=== PATIENT | female | born 1945 | race Caucasian/White ===

== ENCOUNTER → 2017-08-25 09:56 | Outpatient (CLI) | payer OTHER, SELFPAY ==
--- NOTE | 2017-08-25 | DI.MRI.S_ITS ---
PROCEDURE: MR KNEE RT WO CON INDICATIONS: Right knee osteoarthritis TECHNIQUE: Noncontrast sagittal PD fast spin echo and T2 fast spin echo with fat saturation, sagittal 3-D FLASH with fat saturation; coronal T1 spin echo and PD fast spin echo with fat saturation, and axial PD fast spin echo with fat saturation through the knee. COMPARISON: None. FINDINGS: Image quality: Excellent. Menisci: Intrasubstance signal change within the body and posterior horn of the medial meniscus extends to the inferior articular surface on image 22 series 6 in keeping with nondisplaced undersurface tear. The lateral meniscus demonstrates marked truncation of the free margin and intrasubstance signal change extending to the superior and inferior articular surfaces in keeping with tear involving the body Cruciate ligaments: The anterior and posterior cruciate ligaments appear intact. There is mild striated T2 hyperintense appearance of the anterior cruciate ligament raising the possibility of low-grade age indeterminate sprain versus mucoid degeneration. Medial structures: The medial collateral ligament appears intact. There is questionable low signal thickening of the proximal segment raising possibility of chronic mild sprain The posterior oblique ligament, semimembranosus tendon insertions, oblique popliteal ligament, and meniscocapsular junction appear intact. Visualized portions of the pes anserinus tendons appear normal. No abnormal bursal fluid. Lateral structures: The lateral collateral ligament, long and short heads of the biceps femoris tendon appear intact. The popliteus tendon appears normal; the popliteofibular ligament appears intact. The posterosuperior and anteroinferior popliteomeniscal fascicles appear intact. The arcuate and fabellofibular ligaments appear intact, on either side of the lateral inferior geniculate artery. Iliotibial band appears normal. Anterior structures: There is thickening and intrasubstance T2 hyperintensity involving the distal quadriceps tendon and keeping with partial rupture, with adjacent soft tissue edema. Patellar tendon appears intact. Patellar alignment is normal. No femoral trochlear dysplasia or ventral trochlear prominence. No edema in the infrapatellar fat pad. Fluid is present within the deep infrapatellar bursa Bones and cartilage: No bone marrow contusions or fractures. Within the medial compartment, there is partial-thickness loss of the central weightbearing femoral and tibial articular cartilage. Within the lateral compartment, diffuse surface fraying of the femoral and tibial articular cartilage without focal defect. Within the patellofemoral compartment, there is full-thickness loss of the cartilage overlying the medial and lateral patellar facet as well as the femoral trochlea. Joint space: There is physiologic knee joint fluid. No Chavez's cyst. Presumed ganglion cyst seen at the origin of the medial and lateral gastrocnemius muscles. IMPRESSION: Distal quadriceps insertional tendinopathy/partial tear. Adjacent soft tissue edema. Nondisplaced undersurface tear involving the body and posterior horn of the medial meniscus. Poorly defined air of the lateral meniscal body, versus postsurgical changes. Please correlate with surgical history. Chronic mild sprain of the medial collateral ligament. Severe knee joint degeneration most advanced in the patellofemoral compartment. Possible low-grade age indeterminate sprain of the anterior cruciate ligament versus early mucoid degeneration. Please correlate to clinical exam findings. Dictated by: Devonte Ashby M.D. on 08/25/2017 at 13:00 Approved by: Devonte Ashby M.D. on 08/25/2017 at 13:38
== END ==
PROVIDERS: Family Provider Family Medicine Geriatric Medicine; PCP Family Medicine Geriatric Medicine; Visit Provider Orthopaedic Surgery
DX: M17.11 Unilateral primary osteoarthritis, right knee (principal); S83.241A Other tear of medial meniscus, current injury, right knee, initial encounter; S76.111A Strain of right quadriceps muscle, fascia and tendon, initial encounter
CPT/HCPCS: 73721

== ENCOUNTER 2018-07-07 06:06 | Inpatient (IN) | payer OTHER, MEDICARE, SELFPAY ==
[2018-06-23 08:46] VITALS: BMI 22.9
[2018-07-07] VITALS (28 sets, daily range): BP systolic 87–150; BP diastolic 45–79; PULSE 55–92; RESP 10–22; TEMP 35.6–36.8; O2SAT 94–100; BMI 22.1
--- NOTE | 2018-07-07 | DI.RAD.S_ITS ---
PROCEDURE: XR PELVIS 1-2V INDICATIONS: ANTERIOR HIP REPLACEMENT TECHNIQUE: Intra-operative view of the pelvis and hip acquired. COMPARISON: [facility], [place], XR HIP W PEL IF DONE RT 2V, 07/07/2018, 11:16. FINDINGS: Intraoperative images demonstrate right hip arthroplasty. Hardware is intact with anatomic alignment. IMPRESSION: Right hip arthroplasty. Dictated by: Alfreda Evans M.D. on 07/07/2018 at 13:17 Approved by: Alfreda Evans M.D. on 07/07/2018 at 13:18
--- NOTE | 2018-07-07 | DI.RAD.S_ITS ---
PROCEDURE: XR HIP W PEL IF DONE RT 2V INDICATIONS: POST OPERATIVE RIGHT HIP TECHNIQUE: AP pelvis and lateral view of the right hip acquired. COMPARISON: [facility], [place], XR HIP W PEL IF DONE RT 2V, 07/07/2018, 11:16. FINDINGS: Bones: Patient is status post right hip arthroplasty, with hardware components in expected positions. The hip joint appears congruent. The visualized bony structures appear intact. Soft tissues: Overlying postoperative changes are noted. No suspicious soft tissue densities. IMPRESSION: Right hip prosthesis in anatomic alignment. Dictated by: Eboni Snyder M.D. on 07/07/2018 at 15:51 Approved by: Eboni Snyder M.D. on 07/07/2018 at 15:51
--- NOTE | 2018-07-07 | DI.RAD.S_ITS ---
PROCEDURE: XR HIP W PEL IF DONE RT 2V INDICATIONS: CUP REVISION TECHNIQUE: 5 views of the hip were acquired. COMPARISON: None. FINDINGS: Intraoperative fluoroscopy images demonstrate revision of right hip prosthesis. IMPRESSION: Revision of right hip prosthesis. Dictated by: Eboni Snyder M.D. on 07/07/2018 at 15:28 Approved by: Eboni Snyder M.D. on 07/07/2018 at 15:29
--- NOTE | 2018-07-07 06:37 | DI.RAD.S_ITS ---
PROCEDURE: XR HIP W PEL IF DONE RT 2V INDICATIONS: Postop right total hip arthroplasty TECHNIQUE: AP pelvis and lateral view of the right hip acquired. COMPARISON: [facility], CR, XR PELVIS 1-2V, 07/07/2018, 8:12. [facility], CR, XR PELVIS WITH LATERAL HIP RIGHT, 04/26/2018, 14:27. FINDINGS: Bones: Patient is status post right hip arthroplasty, with hardware components in expected positions. The hip joint appears congruent. The visualized bony structures appear intact. Soft tissues: Overlying postoperative changes are noted. No suspicious soft tissue densities. IMPRESSION: Right hip arthroplasty as above. Dictated by: Alfreda Evans M.D. on 07/07/2018 at 13:19 Approved by: Alfreda Evans M.D. on 07/07/2018 at 13:19
[2018-07-07] MEDS: ACETAMINOPHEN 325 MG TABLET 975 MG PO ×2 (06:53→20:03)
[2018-07-07] MEDS: PREGABALIN 75 MG CAPSULE PO (06:53)
[2018-07-07] MEDS: VANCOMYCIN 1,000 MG/200 ML FROZ.PIGGY 200 MG IV (06:59)
[2018-07-07] MEDS: LACTATED RINGERS 1,000 ML 42 ML IV ×3 (07:00→11:35)
--- NOTE | 2018-07-07 07:25 | SUR.OPER ---
Supine, head on pillow, torso on pink pad positioner. Iliac crest at flex of foot end of table. Gel roll under operative hip. Both arms secured on arm boards <90 degrees abduction.
--- NOTE | 2018-07-07 07:38 | PM.PREOP ---
Pre-operative Note Interval Note History & Physical reviewed/Exam performed by Physician: Yes Changes to H&P: No
--- NOTE | 2018-07-07 07:40 | P.OP_ITS ---
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 Patient was carefully positioned in the supine position. Time-out was performed and antibiotics were given. Anesthesia was induced. She was positioned in the on the table in order to allow hyperextension of the hip. Bilateral lower extremities were prepped and draped in a standard sterile fashion. An anterior right hip incision was made 1 fingerbreadth lateral to the anterior superior iliac spine and extended distally towards the greater trochanter. Dissection was carried out through skin and subcutaneous tissues. The skin and subcutaneous tissues were carefully injected with Lidocaine with epi. Superficial hemostasis was achieved. The fascia over the tensor fascia ruby was defined and incised with a knife. Two Allis clamps were used to grasp the fascia. Tensor fascia ruby was retracted laterally. A gelpi retractor was placed. Dissection was carried out down along the neck. The circumflex vessels were carefully identified and cauterized with the Aqua Mantis. There was good visualization of the femoral neck. A Cobra was placed superior to the neck and the gluteus fibers were carefully stripped from that superior aspect of the capsule. A 2nd retractor was placed along the inferior aspect of the neck. The rectus insertion along the capsule was partially released. A 3rd retractor that was then gently placed over the rim of the acetabulum under the rectus. Capsule was carefully incised and released from the intertrochanteric line circumferentially superior to the mid sagittal line and inferiorly to the mid sagittal line until the lesser trochanter was palpable. A tag stitch was placed both in the superior and inferior limb of the capsular insertion. Along the acetabulum capsule was also released up to the mid sagittal 12:00 position. A portion of the labrum was resected. A saw was used to perform an osteotomy at the level of the intertrochanteric line and the junction of the superior femoral neck leaving approximately 1 finger breath of residual inferior neck above the lesser trochanter. A 2nd cut was made along the femoral neck at the base of the head and a napkin ring of neck was removed. Corkscrew was placed in the femoral head and the head was removed without difficulty. Retractors were then repositioned around the acetabulum. Residual labrum was resected and additional osteophytes were removed. A reamer that was 4 mm below the templated size was placed by hand in the acetabulum and it was reamed to centralize the acetabulum. It was then reamed up to 2 under the templated size and fluoroscopy was brought in to confirm the position of the reaming and depth of reaming. I reamed 1 under the anticipated size and touched the rim with line to line reaming. A trial cup was placed and noted that it was appropriately sized and fluoroscopy confirmed position and depth. The component was open and inserted without difficulty fluoroscopic imaging was used to confirm that the cup had been adequately seated and was well positioned. Neutral poly trial liner was placed. The cup was tested and noted to be stable. as she had soft bone I specifically checked the stability of the cup several times. Attention was then directed to the femur. The femur was gently hyperextended additional capsular release was performed as needed in order to allow adequate visualization of the proximal femur with elevation of the femur. Patient was placed in a hyperextended slightly abducted position with maximum external rotation. Box osteotome was used to check for any residual neck as well as sclerotic bone along the trochanter. [place] pepper was placed in the femur. Additional broaching was performed. Canal finder was used to determine the alignment of the canal and position. Size 1 broach was placed. The canal was then appropriately broached up to the templated size as long as there was adequate stability of the broach and serial advancement of the broach without excessive impingement. Specific attention was directed at avoiding varus attempting to direct the distal aspect of the broach more anteriorly and avoiding excessive anteversion. Trial reduction showed acceptable range of motion, good stability, no posterior impingement, scientology of leg length and appropriate lateral shuck. I also hyperflexed the hip and checked that there was no impingement anteriorly and there was good stability with flexion, abduction and internal rotation. Marcaine and Exparel were injected.. The stem was placed without difficulty. Repeat trial reduction and x-ray showed acceptable overall position, length, and no evidence of the femoral fracture. Final head was placed. Wound was meticulously irrigated with normal saline. The hip was reduced and additional Exparel and Marcaine were injected. The capsule was closed with interrupted nonabsorbable sutures. The fascia of the tensor was closed with interrupted and running Vicryl. No drain was placed. Any tensor fascia ruby muscle that appeared to be contused or injured which was a minimal amount was carefully resected. Capsule around the tensor was injected with Exparel and Marcaine. The skin was closed with barbed stitches for the subcutaneous tissue and skin. We also used surgical glue. The wound was dressed sterilely. Brief Betadine soak was also used and was meticulously irrigated with normal saline. Patient was transferred to recovery room in satisfactory condition. Immediate postoperative films showed that the cup had shifted position it was not felt to be acceptable. The situation was discussed in detail with the patient and I directly contacted the who had gone to an eye appointment and told him that we are going to take her back to reposition the cup. He gave verbal consent for his who also gave verbal consent for additional surgical intervention. procedure alternatives risks benefits and complications were discussed in detail. Complications: other (Immediate postoperative recovery x-rays showed that the cup had clearly shifted in comparison to intraoperative positioning) Condition: stable Disposition: Acute Care Plan for aftercare: The patient will be maintained on a standard total hip replacement protocol with weight bearing as tolerated and anterior hip precautions. The patient will receive Aspirin and sequential compression devices for DVT prophylaxis. The patient will be discharged home when safe for the home environment.
[2018-07-07] MEDS: CEFAZOLIN 2 GM/100 ML FROZ.PIGGY IV ×3 (08:00→20:50)
[2018-07-07] MEDS: TRANEXAMIC ACID 1,000 MG VIAL 1000 MG IV ×2 (08:33→10:38)
[2018-07-07] MEDS: BUPIVACAINE LIPOSOME 266 MG/20 ML VIAL INJ (08:33)
[2018-07-07] MEDS: LIDOCAINE 1% W/EPI INJ 20 ML INJ (08:33)
[2018-07-07] MEDS: POVIDONE-IODINE 15 ML, SODIUM CHLORIDE 0.9% 250 ML TOP (08:34)
[2018-07-07] MEDS: BUPIVACAINE 0.25% W/ EPI 30 ML VIAL 60 ML INJ (08:34)
--- NOTE | 2018-07-07 08:35 | SUR.OPER ---
Head on pillow. Supine on [place] table with bilateral feet secured in traction boots. Right arm across chest, secured with sheet; left arm secured on padded armboard. Capillary refill checked intermittently throughout procedure.
[2018-07-07] MEDS: fentaNYL 100 MCG/2 ML INJ 50 MCG IV ×4 (11:16→12:06)
[2018-07-07] MEDS: HYDROMORPHONE 2 MG INJ 0.5 MG IV ×3 (11:24→12:11)
--- NOTE | 2018-07-07 11:46 | SUR.PHASEI ---
BEDSIDE REPORT GIVEN TO MANJIT FERNANDEZ. PT IN STABLE CONDITION, VSS. PT ALERT AND TALKING TO RN AT BEDSIDE. PT REPORTS PAIN IS GETTING BETTER. TRANSFERRED CARE OF PT TO MANJIT FERNANDEZ AT THIS TIME.
--- NOTE | 2018-07-07 11:57 | SUR.PHASEI ---
Pt. states pain is at a 4 on pain scale 0-10. Using moist sponge to moisten mouth, anesthesia approved. VVS.
--- NOTE | 2018-07-07 12:16 | SUR.PHASEI ---
FLOAT NURSE here at bedside to receive report from Ph I RN, now back out to OR per surgeon.
--- NOTE | 2018-07-07 12:59 | SUR.PHASEI ---
addendum to 1206 medication note. Pt. DID NOT receive 50mcg of fentanyl, documented fentanyl by mistake, at 1206, pt. rec'd 0.5 mg hydromorphone and again 0.5 mg hydromorphone at 1211. Fentanyl 50mcg was wasted by this RN and Maritza Lucia RN
--- NOTE | 2018-07-07 13:07 | SUR.OPER ---
Head on pillow. Supine on [place] table with bilateral leg secured in traction. Right arm padded and secured across chest, left arm secured on padded armboard
[2018-07-07] MEDS: BUPIVACAINE 0.25% W/ EPI (PF) 10 ML VIAL INJ (13:44)
--- NOTE | 2018-07-07 15:14 | PM.OP.1 ---
Operative Date/Time/Diagnoses Date of procedure: 07/07/18 Time of procedure: 13:14 Post-op diagnosis: same Procedure & Clinicians Procedure: Right hip revision of acetabular position Same procedure as scheduled: Yes Indications: This is a 73-year-old female with a history of a renal transplant chronic steroid use and chronic cyclosporin use. She underwent her anterior right total hip arthroplasty. intraoperatively her cup position was clinically stable but on postoperative films it was noted that the cup had shifted. She is brought the operating room for revision and placement of an acetabulum with screw fixation. Surgeon: Laquita Leal Forming Yardage Control Operator: Nina Horton Anesthesia Type: General Operative Notes Findings: Extremely soft acetabular bone, components removed without difficulty, larger acetabulum inserted but still required additional screw fixation for stability, very soft acetabulum Closure Type: primary Prosthetic devices, grafts, tissues, transplants, or devices: Leal and Nephew 54 mm cup, 20 mm screw, 15 mm screw, 54 x 36 mm liner, removed but retained femoral prosthesis and head Applied: catheter Estimated Blood Loss (mL): 50 Blood products transfused: none Procedure in detail: The patient was brought to the operating room. Patient was carefully positioned in the supine position. Time-out was performed and antibiotics were given. Anesthesia was induced. She was positioned in the on the table in order to allow hyperextension of the hip. the right lower extremities were prepped and draped in a standard sterile fashion. the sutures were removed from the patient's previous incision and the wound was meticulously irrigated. Two Allis clamps were used to grasp the fascia. Tensor fascia ruby was retracted laterally. A gelpi retractor was placed. The hip was very gently dislocated. Retractors were placed around the proximal femur the head was removed without difficulty. The stem was carefully removed without difficulty by tamping on the punch region of the neck. the femoral component was carefully removed. the acetabulum was noted to be spun and quite loose. It was removed with [place]. Retractors were placed around the acetabulum. the acetabulum was reamed up to a 53 mm cup and fluoroscopy was brought in to confirm the position of the reaming and depth of reaming. I reamed 1 under the anticipated size. A trial cup was placed and noted that it was appropriately sized and fluoroscopy confirmed position and depth. The component was open and inserted without difficulty fluoroscopic imaging was used to confirm that the cup had been adequately seated and was well positioned. It was meticulously impacted but with testing of the acetabulum it was clear that she had soft bone and was still required screw fixation. two screws were carefully placed in the posterior superior safe zone. Neutral poly liner was placed. The cup was tested and noted to be stable. Attention was then directed to the femur. The femur was gently hyperextended. Patient was placed in a hyperextended slightly abducted position with maximum external rotation. the canal was meticulously irrigated with the pulse lavage. the femoral size 8 standard offset stem was inserted without difficulty. Trial reduction showed acceptable range of motion, good stability, no posterior impingement, synagogue of leg length and appropriate lateral shuck. I also hyperflexed the hip and checked that there was no impingement anteriorly and there was good stability with flexion, abduction and internal rotation. Repeat x-ray showed acceptable overall position, length, and no evidence of the femoral fracture. Final head was placed. Wound was meticulously irrigated with normal saline. The hip was reduced and additional Exparel and Marcaine were injected. The capsule was closed with interrupted nonabsorbable sutures. The fascia of the tensor was closed with interrupted and running Vicryl. No drain was placed. Any tensor fascia ruby muscle that appeared to be contused or injured which was a minimal amount was carefully resected. Capsule around the tensor was injected with Exparel and Marcaine. The skin was closed with barbed stitches for the subcutaneous tissue and skin. We also used surgical glue. The wound was dressed sterilely. Brief Betadine soak was also used and was meticulously irrigated with normal saline. Patient was transferred to recovery room in satisfactory condition. Complications: none Condition: stable Plan for aftercare: The patient will be maintained on a standard total hip replacement protocol with weight bearing as tolerated and anterior hip precautions. The patient will receive Aspirin and sequential compression devices for DVT prophylaxis. The patient will be discharged home when safe for the home environment.
--- NOTE | 2018-07-07 15:57 | PC.NURSE ---
Addendum entered by Martine Reyes R.N. 07/07/18 22:26: Up to commode with assistance. Voiding without difficulty. Follows hip precautions well. Returned to bed; pillow between legs and BL calf scd's replaced. Room air 98% per continuous monitor. Ice to right hip. Intact neurovascular status. Encouraged to alert staff if needing/desiring further analgesia. Own I.S. at bedside and use encouraged. Original Note: Addendum entered by Martine Reyes R.N. 07/07/18 20:14: Dr. Leal in to see patient. Pt prefers tylenol only to manage pain, but Dr. Leal states will write for tramadol if needed. Original Note: Addendum entered by Martine Reyes R.N. 07/07/18 18:46: Pt unable to void on bedpan. Has not been seen by P.T. yet. Bladder scanned for 333 cc/s. One person assist to bedside commode and able to void 150 cc's. Original Note: Addendum entered by Martine Reyes R.N. 07/07/18 18:08: Desats to 88% with sleep per float RNLoli. Placed on 2L per nc. Taking diet well. Original Note: Pt to room 211 from PACU wide awake and conversant with pinpoint pupils. Appropriate mentation and conversation. Continuous pulse oximeter in place with 02 sats on room air 97%. Palpable pedal pulse RLE. Pt admits to full sensation to BL LE's. BL calf scd's in place. Pt denies nausea and taking sips water without difficulty. Rates right hip pain 2/10. Declines offer for analgesia at this time. Ice to right hip. Oriented to call light.
[2018-07-07] MEDS: LACTATED RINGERS 1,000 ML 125 ML IV (16:18)
[2018-07-07] MEDS: CYCLOSPORINE 75 MG 75 EACH PO (19:07)
[2018-07-07] MEDS: ASPIRIN EC 81 MG TABLET PO (20:03)
[2018-07-07] MEDS: DOCUSATE 100 MG CAPSULE PO (20:03)
[2018-07-07] MEDS: TRAMADOL 50 MG TABLET PO (23:09)
[2018-07-08] MEDS: LACTATED RINGERS 1,000 ML 125 ML IV (00:17)
[2018-07-08] MEDS: CEFAZOLIN 2 GM/100 ML FROZ.PIGGY IV (05:06)
[2018-07-08 05:12] VITALS: BP 123/66; PULSE 92; RESP 16; TEMP 36.8; O2SAT 99
[2018-07-08 06:21] LABS: Hemoglobin 7.8 g/dL (12.0-16.0)
[2018-07-08 06:27] LABS: Hematocrit 23.4 % (36-46)
[2018-07-08 07:10] VITALS: O2SAT 95
[2018-07-08 07:35] VITALS: BP 109/55; PULSE 73; RESP 16; TEMP 36.7; O2SAT 99
[2018-07-08] MEDS: predniSONE 5 MG TABLET PO (07:59)
[2018-07-08] MEDS: CYCLOSPORINE 75 MG 75 EACH PO (07:59)
[2018-07-08 08:00] VITALS: O2SAT 100
[2018-07-08] MEDS: azaTHIOprine 50 MG TABLET PO (08:00)
[2018-07-08] MEDS: ASPIRIN EC 81 MG TABLET PO (08:00)
[2018-07-08] MEDS: DOCUSATE 100 MG CAPSULE PO (08:00)
[2018-07-08] MEDS: CANDESARTAN 16 MG TABLET 8 MG PO (08:02)
[2018-07-08] MEDS: ACETAMINOPHEN 325 MG TABLET 975 MG PO (08:04)
[2018-07-08] MEDS: TRAMADOL 50 MG TABLET PO (08:19)
[2018-07-08] MEDS: SODIUM CHLORIDE 0.9% FLUSH 10 ML IV (08:20)
--- NOTE | 2018-07-08 08:20 | PM.DS.1 ---
History of Present Illness Date Patient Seen: 07/08/18 Time Patient Seen: 08:20 Chief complaint: Total Hip Arthroplasty/Anterior Narrative: This is a 73-year-old female with a history of a renal transplant chronic steroid use and chronic cyclosporin use. She underwent her anterior right total hip arthroplasty for severe AVN. intraoperatively her cup position was clinically stable but on postoperative films it was noted that the cup had shifted. She is brought the operating room for revision and placement of an acetabulum with screw fixation. Discharge Providers Date of admission: 07/07/18 06:06 Discharge Date: 07/08/18 Primary care physician: Vicky Smith MD Consults: 06/23/18 09:43 Consult to Anesthesiology Routine Comment: Consulting Provider: Anesthesiologist Reason for consultation: PAC Courtesy re: Renal transplant Consult to Pastoral Services Routine Comment: RT JERAMY 07/07/18 07/07/18 06:37 Consult to Anesthesiology Routine Comment: Consulting Provider: Anesthesiologist Reason for consultation: Regional block for post operative pain control 07/07/18 15:49 Consult to Discharge Planning Routine Comment: Consult to Physical Therapy Evaluate & Treat Comment: Physician Instructions: post op JERAMY protocol Consult to Respiratory Therapy Evaluate & Treat Comment: Physician Instructions: Evaluate and treat 07/07/18 16:04 Consult to Pastoral Services Routine Comment: pt requeswt Discharge provider: Nina Horton PA-C Summary Discharge Diagnosis: s/p right anterior approach total hip arthroplasty History of renal transplant Osteoarthritis Hypertension Hyperlipidemia Glomerulonephritis Post operative anemia Hospital Course: Katie was admitted for right total hip arthroplasty anterior approach with Dr. Leal. She consented to procedure. After her 1st surgery it was discovered that the acetabular cup had shifted. She was brought back to the operating room for a revision and 2 screws were placed into acetabular cup. She did have postoperative anemia after surgery at 7.8/23.4 and asymptomatic. She she does have a history of chronic anemia due to her kidney transplant in the s. She has been on chronic prednisone since. She takes iron at home. On postop day 1. Patient was ready to discharge home. She has been ambulating in her room. she was eating and voiding without difficulty or assistance. Status at Discharge Functional status at discharge: uses cane/walker Exam Vital Signs (past 8 hours): - 07/08/18 05:12 07/08/18 07:10 Temperature 98.3 F Pulse Rate 92 H Respiratory Rate 16 Blood Pressure 123/66 Pulse Oximetry 99 95 Oxygen Delivery Method Room Air Oxygen Flow Rate 0 Narrative Exam Narrative: Patient lying in bed in no acute distress. She is alert and oriented x3. Dressing on right hip is CDI. Calves are soft, compressible, nontender bilaterally. Sensation intact light touch throughout bilateral lower extremities. Pulses are symmetrical. Patient's pain was well controlled last night with tramadol. She has been up and ambulating in her room and has been asymptomatic with no dizziness, or hypotension. Objective Labs Result Diagrams: 07/08/18 06:03 Labs: Laboratory Results - last 24 hr 07/08/18 06:03 Hgb 7.8 L Hct 23.4 L Discharge Plan Discharge Plan Patient Disposition: Home Discharge comment: Home after PT Discharge Med Rec/Prescriptions Prescriptions: New acetaminophen 325 mg Tablet 975 mg PO TID Qty: 60 RF: 0 aspirin 81 mg Tablet,Delayed Release (Dr/Ec) 81 mg PO BID Qty: 60 RF: 0 tramadol 50 mg Tablet 50 mg PO QID PRN (Reason: Pain, Moderate (4-6)) Qty: 50 RF: 0 ascorbic acid (vitamin C) [Vitamin C] 500 mg Tablet 500 mg PO BID Qty: 60 RF: 0 ferrous sulfate 325 mg (65 mg iron) Tablet 325 mg PO BIDWM Qty: 60 RF: 0 docusate sodium 100 mg Capsule 100 mg PO BID Qty: 60 RF: 0 Continued prednisone 5 MG tablet 5 mg PO QAM Qty: 0 RF: 0 azathioprine [Imuran] 50 MG tablet 50 mg PO QMWF Qty: 0 RF: 0 cyclosporine [Sandimmune] 25 MG capsule 75 mg PO BID Qty: 0 RF: 0 candesartan 8 MG tablet 8 mg PO QAM Qty: 0 RF: 0 azathioprine [Imuran] 50 mg Tablet 25 mg PO [id number] RF: 0 Follow up/Referrals: Vicky Smith MD [Primary Care Provider] - Laquita Leal MD [Physician] - Provider Discharge Instructions Diet: Diet as Tolerated Activity: Weight bear as tolerated. Anterior hip precautions. Cold/Heat Therapy: Ice packs as needed Skin/Wound/Dressing Care Report to your healthcare provider any signs of infection, such as:: chills, fever and increased pain Dressing: Keep dressing in place until follow up at 2 weeks. Visit Report/Discharge Packet Instructions: DI for Hip Replacement Discharge Data Primary Care Provider: Vicky Smith Attending Provider: Laquita Leal Admit Date/Time: 07/07/18 06:06 Quality VTE Deep Vein Thrombosis/Pulmonary Embolism Present on Admission: No
--- NOTE | 2018-07-08 08:48 | PM.CHAP ---
Staff referral. Delightful visit. Pt. has good support group waiting for her back home in Wednesday. Shared prayer and encouragement.
--- NOTE | 2018-07-08 09:00 | PT.IIE ---
Current Diagnoses Unilateral primary osteoarthritis, right hip (07/07/18) Surgery Performed Operation Date: 07/07/18 07:45 Actual Procedures p Total Hip Arthroplasty/Anterior Approach(Right) - Laquita Leal MD Operation Date: 07/07/18 14:45 Actual Procedures p Total Hip Arthroplasty/Anterior Approach (revision of cup position and prosthesis)(Right) - Laquita Leal MD Surgical History (Last Updated 06/23/18 @ 09:24 by Arianna Sweet RN) Hx of bilateral cataract extraction (Acute) Hx of kidney transplant (Acute ~05/1994) Hx of reduction mammoplasty (Acute ~1997) Hx of tonsillectomy (Acute) S/P left unicompartmental knee replacement (Acute) Medical History (Last Updated 06/23/18 @ 09:24 by Arianna Sweet RN) Easy bruisability (Acute) Elevated WBC count (Acute) Hyperlipidemia (Acute) Hyponatremia (Acute) Osteoarthritis (Acute) SCC (squamous cell carcinoma) (Acute) Shoulder fracture, right (Acute 09/03/17) Systolic murmur (Acute) Physical Therapy Inpatient Evaluation/Re-Eval M1 PT/OT-IP Prior Functional Status Start: 07/07/18 17:03 Freq: NEEDED Status: Active Protocol: Document 07/08/18 09:00 AB (Rec: 07/08/18 12:48 AB [id number]) Medical Review Prior Functional Status Medical History Reviewed Yes Communication able to make needs known Mobility and Gait pt stated that she is modified independent with all mobilities and ambulation without AD indoors but occasionally uses a SPC but uses SPC for outdoor mobility Social History Household Members spouse Living Arrangements House Number of Floors (Floors) Two Floors Number of Stairs To Enter/Railing? 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 PT-IP Current Condition Start: 07/07/18 17:03 Freq: NEEDED Status: Active Protocol: Document 07/08/18 09:00 AB (Rec: 07/08/18 12:48 AB [id number]) Physical Therapy Current Condition Current Condition Evaluation Date 07/08/18 Treatment Diagnosis s/p R JERAMY anterior approach; difficulty in walking Onset Date 07/07/18 Precautions Anterior Hip Precautions No Hip Extension No Hip External Rotation Weight Bearing Status Weight Bearing Status Weight Bear as Tolerated M3 PT-IP Subjective Start: 07/07/18 17:03 Freq: NEEDED Status: Active Protocol: Document 07/08/18 09:00 AB (Rec: 07/08/18 12:48 AB [id number]) Subjective Physical Therapy Visit Type Type Initial Evaluation Visit Start Time 09:00 Visit Stop Time 09:57 Total Visit Minutes 57 Number of LINE PREP COOK Visits 0 Physical Therapy Visit Comments Patient Comments pt agreeable to do PT Therapy Pain Assessment Pain When Pain Assessed At Rest Pain Present Pain Present Pain Reported Location Right Hip Intensity 2 Scale Used Numeric (1 - 10) Pain Management Techniques Apply Cold Re-positioning Timing of Activity with Medications M4 PT-IP Mobility and Gait Start: 07/07/18 17:03 Freq: NEEDED Status: Active Protocol: Document 07/08/18 09:00 AB (Rec: 07/08/18 12:48 AB [id number]) PT-Bed Mobility Assessment Supine to Sit Supine to Sit Standby Assistance Sit to Supine Sit to Supine Standby Assistance Scooting Scooting to Edge of Bed Standby Assistance PT-Transfer Assessment Sit to and From Stand Sit to and from Stand Standby Assistance 1 Person Assistance Use of Upper Extremities Equipment Transfer Assistive Device Gait Belt Front Wheeled Walker 4 Wheeled Walker Orthotic/Prosthetic Devices or Brace: Yes Transfers Transfer Destination Chair Transfer Technique pt ambulated using FWW/4WW Transfer Ability Level of Assist Standby Assistance Gait Assessment Gait Gait Assistance Required: Standby Assistance Contact Guard Assist Distance (Feet) 125 Able to Maintain Weight Bearing Status Yes During Gait Assistive Devices Assistive Device Gait Belt Front Wheeled Walker 4 Wheeled Walker Orthotic/Prosthetic Devices or Brace: No Gait Deviations General Gait Pattern Antalgic Decreased Stride Length Decreased Feet Clearance Factors Limiting Gait Function Factors Limiting Gait Function Decreased Activity Tolerance Decreased Strength Limited Range of Motion Pain Poor Balance Poor Safety Awareness Comments Gait Comments pt ambulated in room using FWW ~ 50 ft SBA and cues for hip precautions. pt has 4WW to use at home. Assessed ambulation using 4WW. educated on use of brakes. pt completed ambulation in the hallway 125 ft SBA to occasional CGA and cues. Stair Climbing Assessment Evaluation Level of Assist On Stairs Contact Guard Assistance Devices Stair Climbing Assistive Devices Straight Cane Right Railing Technique/Endurance Stair Climbing Direction Ascend and Descend Stair Climbing Technique Step to Step Number of Steps Climbed 3 Query Text: Stair Climbing Set # Repetitions (reps) 2 Comments Stair Climbing Comments pt c/o nausea after doing stairs. assisted pt to the room. BP checked: 153/78. pt transferred from w/c to chair using FWW SBA. positioned pt on chair. ice pack provided. call light and table placed within reach. PT-Balance Assessment Sitting Balance and Reactions Static Sitting Balance Ability Good Dynamic Sitting Balance Ability Good Standing Balance and Reactions Static Standing Balance Ability Fair Dynamic Standing Balance Ability Fair Device Used FWW M5 PT-IP Objective Assessments Start: 07/07/18 17:03 Freq: NEEDED Status: Active Protocol: Document 07/08/18 09:00 AB (Rec: 07/08/18 12:48 AB [id number]) Orientation Orientation/Cognition Level of Alertness Alert Orientation Name Age Birthday Date Place Situation Language Function Ability No Deficits Noted Memory Description Short Term Impaired Gross Range of Motion Lower Extremity ROM Assessment Within Functional Limits Strength Lower Extremity Strength Assessment Right Impaired Knee 4-/5 Sensation Assessment Sensation Gross Sensation WNL Muscle Tone Muscle Tone WNL Yes M6 PT-IP Treatment Start: 07/07/18 17:03 Freq: NEEDED Status: Active Protocol: Document 07/08/18 09:00 AB (Rec: 07/08/18 12:48 AB [id number]) Physical Therapy Treatment Education Education Provided Precautions Weight Bearing Status Post-Op Packet Safety M7 PT-IP Assessment and Plan Start: 07/07/18 17:03 Freq: NEEDED Status: Active Protocol: Document 07/08/18 09:00 AB (Rec: 07/08/18 12:48 AB [id number]) PT Summary Assessment and Plan Potential Rehabilitation Potential Good Status of Condition at Evaluation Stable Summary Impairments Pain ROM Strength Balance Coordination Sensation Tone Cognition Bed Mobility Transfers Gait Activity Tolerance Assessment Summary pt requiring SBA to CGA with mobility and plans to go home with spouse to assist her. pt may go home when medically stable. Goals Bed Mobility Goal Independent Transfer Goal Independent Four Wheeled Walker Gait Goal Independent Four Wheel Walker Gait Distance 200 Other Goals up/down 6 steps with R rail ascending and use of SPC Days to Meet Goals 3 Frequency of Treatment Frequency Of Treatment Twice a Day Treatment Plan Physical Therapy Treatment Plan Bed Mobility Training Transfer Training Gait Training Therapeutic Exercise Balance Retraining Post Op Education Discharge Planning Hot or Cold Pack Neuromuscular Re-ed Coordination Retraining Manual Therapy Other Recommendations and Next Treatment ambulation, stair climbing Focus Recommendations To Nursing Amount of Assist Needed 1 Person Assist Discharge Recommendations PT Discharge Recommendations Home with Assistance Outpatient PT
[2018-07-08] MEDS: ASCORBIC ACID 500 MG TABLET PO (10:02)
[2018-07-08] MEDS: FERROUS SULFATE 325 MG TABLET PO (10:02)
--- NOTE | 2018-07-08 10:15 | PC.NURSE ---
Addendum entered by Breanna Sterling R.N. 07/08/18 13:26: At 1200, reviewed discharge summary packet. All questions answered, no further voiced concerns. Pt's present to pick pt up, taking [address] to [facility], has boarding pass. Pt given back 2 bottles of her home medications of Cyclosporine and Azathioprine. COPIER AND PRINTER FIELD TECHNICIAN reported pt left unit via wheelchair with her . Unwitnessed by this content writer. Original Note: Day Shift- Pt A&OX4, able to make needs known using call light. OOB with SBA using walker 2X this shift. Steady gait. Rates 5-6/10 aching and tenderness to right hip incision area. Surrounding puffy edema noted. Scheduled Tylenol and prn Tramadol given at 0820 with good effect. Pain decreased to 2-3/10 upon reassessment after PT session this AM. Pt did feel nauseated after PT session. no prn's needed. Nausea settled after pt in resting position. Right hip aquacel dressing CDI. Pt ambulated with PT and performed stair training. No other voiced concerns. Pt planning on discharging today and taking 1440 to [facility].
--- NOTE | 2018-07-08 12:42 | CM.DANOTE ---
Discharge Planning/Care Management DCP: assessment: case received, EMR reviewed. Discussed in Team Rounds: Therapy team noted that pt would be working with PT for the first time this morning. Pt is a 73 year old female who admitted yesterday for a planned JERAMY/anterior appoach. She went back to the OR same day for a revision of same. Payer: [employer] Medicare A only. PCP: Dr. Smith. Pt lives with her in [facility]. See now that a d/c to home order is in and that pt is [place] to [place]. P: check in and follow prn for any needs that may arise. CM Discharge Assessment Start: 07/08/18 12:41 Freq: Status: Active Protocol: Document 07/08/18 12:41 ITV (Rec: 07/08/18 12:42 ITV [id number]) Discharge Planning Assessment Advance Directives? Yes Advance Directives on File Yes History Provided By Patient Medical Record Prior Living Arrangements House Household Members spouse Review Status In Process Next Review Type Continued Stay Review Pre-Anesthesia Assessment Start: 06/23/18 08:46 Freq: Status: Complete Protocol: Document 06/23/18 08:46 CAB (Rec: 06/23/18 09:41 CAB [id number]) Pre-Anesthesia Assessment Patient Information Reviewed Via Phone Assessment Assessment Completed With Patient Diagnostic Results BMP/CMP CBC EKG Primary Care Provider Vicky Smith Medical Clearance Received Yes Specialist Seen Coordinator Of Placement Jewel Cupping Machine Operator Orthopedist Comment PCP note 05/05/18 scanned to record Primary Language Canadian Inventory Control Specialist Required No Height 165.1 cm Weight 62.596 kg Body Mass Index (BMI) 22.9 Hearing Ability Hard of Hearing Use of Hearing Aid Visual Assist Magnifying Glass Dentition Type Teeth, Natural Present Barriers to Learning None Other Aids No Hx Anesthesia Reactions No Hx Family Anesthesia Reaction No Hx Malignant Hyperthermia No Hx Blood Transfusions No Anesthesia Review Requested Yes: Surgeon requested re: Renal transplant Outplacement Consultant No alcohol intake current alcohol intake frequency a few times a week Smoking Status Never smoker Substance Use Type does not use Pain Present Pain Reported Musculoskeletal Symptoms Abnormal Gait Difficulty Walking Joint Pain Radiating Pain into Limb History of Falling (Recent or History of Yes ) Patient is completely paralyzed or No completely immobile Prosthesis or Orthotic Device Cane Mental Status Oriented to own ability Is patient on oxygen? No Does patient have AGUILAR/SOB No Hx Sleep Apnea No Currently Taking a Beta Daniella No Can You Climb a Flight of Stairs Without Yes SOB Hx Chest Pain No Hx SOB No Hx Syncope or Dizziness No Anti-Coagulant Therapy No Has a Coremaker Pipe No Cardiac Testing No Hx Pacemaker/ICD No Pacemaker Rep Required? No Cardiac Clearance Received Not Applicable Diet Type At Home Regular dysphagia No Bladder Pattern Nocturia Urinary Catheter Present No Hx Urinary Self Catheterization No Diabetes No Patient No Lactating No Hx Drug Resistant Organism No Presence of External or Internal Medical No Devices Have you traveled outside the [facility] in the last 30 days? Marital Status Lives With spouse Prior Living Arrangements House Number of Floors (Floors) Two Floors Support System Friend(s) Spouse Does the Patient Have Assistance After Yes Surgery Patient Discharge Plan Description Return Home Comment Pt advised 1-2 day length of stay per surgeon's office Feels Safe in Current Environment Yes Been Physically Hurt or Threatened By a No Person in Current Environment Do you have thoughts of harming yourself None or others? Are you currently considering suicide? No Do you have a plan to hurt yourself or No Plan others? Do You Have Any Spiritual Beliefs That No May Affect Your HC Choices? Do You Have Any Cultural Practices That No May Affect Your HC Choices? Spiritual Referral In-House Dental Ceramist Helper Who Can We Speak to About Patient's Care Family, friends Identifying Code for Release of Patient Declines to issue Information Health Care Proxy/Next of Kin Walker () Health Care Proxy Emergency Contact Name Kathy Tristan (sister) Emergency Contact or [phone] Advance Directives? Yes Advance Directives on File Yes PAC Instructions Do not shave/clip surgical site Durable medical equipment Medications to take/avoid Nasal antibiotic No ETOH/petroleum product on skin DOS NPO Post-op transportation Pre-surgical wash Sensory aids Sturdy shoes/comfortable clothes Do not bring valuables and remove jewelry
== END 2018-07-08 13:20 | disposition home or self-care (01) | DRG 467 ==
PROVIDERS: Admitting Provider Orthopaedic Surgery; Family Provider Family Medicine Geriatric Medicine; PCP Family Medicine Geriatric Medicine; Visit Provider Orthopaedic Surgery
PROC: 0SR902Z Replacement of Right Hip Joint with Metal on Polyethylene Synthetic Substitute, Open Approach (ICD-10-PCS; CPT 27130; principal; 2018-07-07 07:45)
DX: M16.11 Unilateral primary osteoarthritis, right hip (principal); Z94.0 Kidney transplant status; M87.150 Osteonecrosis due to drugs, pelvis; N04.9 Nephrotic syndrome with unspecified morphologic changes; T84.020A Dislocation of internal right hip prosthesis, initial encounter; I10 Essential (primary) hypertension; E78.5 Hyperlipidemia, unspecified
CPT/HCPCS: 36415; 72170; 73502; 76000; 85014; 85018; 97116; 97161; 97530; C1776; C9290; J0690; J1170; J2250; J2704; J2930; J3010; J3370; J7500

== ENCOUNTER → 2019-11-19 14:24 | Outpatient (CLI) | payer OTHER, SELFPAY ==
[2018-07-07 06:36] VITALS: BMI 22.1
[2019-11-20 17:43] LABS: COVID19 Sendout Not Detected (Not Detect)
== END ==
PROVIDERS: Family Provider Family Medicine Geriatric Medicine; PCP Family Medicine Geriatric Medicine; Visit Provider Physician Assistant
DX: Z11.59 Encounter for screening for other viral diseases (principal)
CPT/HCPCS: 87635

== ENCOUNTER 2019-11-22 07:34 | Day surgery (SDC) | payer OTHER, SELFPAY ==
[2018-07-07 06:36] VITALS: BMI 22.1
[2019-11-14 08:54] VITALS: BMI 22.1
[2019-11-22] VITALS (15 sets, daily range): BP systolic 102–144; BP diastolic 49–82; PULSE 61–83; RESP 14–19; TEMP 36.1–36.8; O2SAT 95–100; BMI 21.3
--- NOTE | 2019-11-22 | DI.RAD.S_ITS ---
PROCEDURE: XR KNEE RT 1TO2V INDICATIONS: POST OP RIGHT KNEE TECHNIQUE: 2 view(s) of the knee acquired. COMPARISON: None. FINDINGS: Bones: Patient is status post knee joint arthroplasty. Hardware components are in expected positions. Visualized bony structures are intact. Soft tissues: Overlying postoperative changes are noted. IMPRESSION: Expected postoperative alignment. Dictated by: Devonte Ashby M.D. on 11/22/2019 at 13:43 Approved by: Devonte Ashby M.D. on 11/22/2019 at 13:44
[2019-11-22] MEDS: LACTATED RINGERS 1,000 ML 42 ML IV (08:05)
--- NOTE | 2019-11-22 08:36 | PM.PREOP ---
Pre-operative Note COVID-19 COVID-19 status: Negative Result date/Date tested (Pos, Neg/Pending): 11/19/19 Interval Note History & Physical reviewed/Exam performed by Physician: Yes Changes to H&P: No
--- NOTE | 2019-11-22 08:51 | P.OP_ITS ---
Operative Date/Time/Diagnoses Date of procedure: 11/22/19 Time of procedure: 10:33 Pre-op diagnosis: Right knee osteoarthritis Post-op diagnosis: same Procedure & Clinicians Procedure: Right total knee arthroplasty Same procedure as scheduled: Yes Indications: The patient presents today for total knee arthroplasty after failure of conservative treatment. The nature of the procedure including the risks and benefits, alternatives, postoperative course and expected outcome were discussed and all questions answered. Consent was obtained. Operative site confirmed and marked. Surgeon: Jovan Estes Media Theorist And Author Of: Zack Dunaway Anesthesia Type: General, Spinal, Peripheral nerve block and Local Operative Notes Closure Type: primary Specimen(s): none sent Prosthetic devices, grafts, tissues, transplants, or devices: Leal and Nephew Ryan BCS: 6 femoral component, 4 tibial component, 9 mm BCS polyethylene tray and 32 x 9 mm round patella Applied: implant(s) Estimated Blood Loss (mL): 5 Blood products transfused: none Tourniquet time (min): 46 Procedure in detail: The patient was taken to the operative suite and placed under anesthesia. The patient was given prophylactic antibiotics prior to surgery. The patient was also given tranexamic acid, 1 g, just prior to surgery for postoperative hemostasis. The lateral knee was prepped and the joint injected with 20 mL of 1% Lidocaine with epinephrine. The knee was then prepped and draped in usual sterile fashion. The leg was exsanguinated with an Esmarch dressing and the tourniquet raised to 250 torr. A 15 cm anterior incision was made. Next a medial trivector arthrotomy was made. The extensor mechanism was marked to ensure accurate repair. Initial exposing dissection was carried out medially and laterally. The knee was then flexed and the intramedullary femoral guide mele placed. The distal femoral cut was made in 6? of valgus at the +0 position. The femoral size was measured and the appropriate cutting block was then placed and the anterior, posterior and chamfer cuts made. The intramedullary tibial alignment mele was then placed. The guide was set to remove approximately 9 mm from the less affected medial side. The proximal tibial cut was then made with an oscillating saw. All meniscus and bony debris was then removed. Posterior femoral osteophytes removed with a curved osteotome. Flexion extension gaps were checked. There was slight tightness laterally which was corrected by releasing the lateral capsule with a 15 blade in a pie crust technique. The soft tissues were then injected with a combination of 20 mL of half percent Marcaine with epinephrine and 20 mL of Exparel. The trial components were then placed. The knee was then extended and the patellar thickness was measured and a cut made removing approximately 9 mm of bone. The patella was then sized and drilled. Some excess lateral bone was excised and the patellofemoral ligament released. The knee went into full extension and flexion beyond 130?. There was excellent medial-lateral balance throughout motion. Patellar tracking was excellent. The trial components were removed and the knee was cleansed with Pulsavac irrigation and dried. The final components were cemented with high viscosity vacuum mixed bone cement with antibiotics. The joint was filled with a dilute Betadine solution. The knee was held in extension and the patellar clamped until the cement was adequately cured. The knee was then irrigated. The extensor mechanism was closed with 5 interrupted #1 Vicryl sutures and a running Quill suture at approximately 90 degrees of flexion. The joint was then injected with a combination of 1 g of tranexamic acid and 20 mL of quarter percent Marcaine with epinephrine. The subcutaneous tissue was closed with 2 0 Vicryl. The skin was closed with a zip close device. An Aquacel dressing and Dane wrap were then applied. The patient tolerated the procedure well and was returned to recovery room in good condition. Complications: none Post-operative Condition: stable Disposition: PACU Plan for aftercare: [facility] Care Protocol.
--- NOTE | 2019-11-22 09:01 | SUR.PREOP ---
[].Dr Weldon here to perform right knee block. Monitoring initiated and maintained throughout the procedure. Pt placed on 2L NC. Time out performed at 0845. Versed 1mg IVP and Fentanyl [address] m[address] Weldon instructions. Right knee prepped at 0848. Procedure end time 0856. Pt remained stable and alert throughout procedure. No adverse reactions noted.
[2019-11-22] MEDS: CEFAZOLIN 2 GM/100 ML FROZ.PIGGY IV ×2 (09:02→18:05)
--- NOTE | 2019-11-22 09:43 | SUR.OPER ---
Supine on padded OR bed. Pillow under head, arms secured on padded armboards <90 degree abduction. Safety belt across torso. Non-operative leg secured with tape over blanket over lower leg. Operative leg secured in DeMayo/Rock positioner. Foam padded brace at thigh of operative leg.
[2019-11-22] MEDS: LIDOCAINE 1% W/EPI 20 ML INJ (09:50)
[2019-11-22] MEDS: BUPIVACAINE 0.25% W/ EPI (PF) 40 ML, BUPIVACAINE LIPOSOME 266 MG, SODIUM CHLORIDE 0.9% ... INJ (09:52)
[2019-11-22] MEDS: BUPIVACAINE 0.25% W/ EPI (PF) 20 ML, TRANEXAMIC ACID 1,000 MG, SODIUM CHLORIDE 0.9% 10 ML INJ (09:53)
--- NOTE | 2019-11-22 10:05 | PM.PROC.1 ---
Procedures Date/Time Date of procedure: 11/22/19 Time of procedure: 08:45 Nerve Block Time out performed: Yes Location of anesthetic used: Right thigh Adductor Canal Amount of anesthesia used (mL): 20 (10 ml Ropivacaine 0.5% and 10 ml Lidocaine 2% with epinephrine) Nerve blocks: other (Saphenous) Procedure successful: Yes Patient tolerated procedure: well and no complications Additional comments: Patient for TKA on right by Dr. Estes. Patient wishes to go home today, if possible. Discussed option, including risks and benefits, of performing Adductor Canal Block for management of post op pain. Patient wishes to proceed with block; questions answered and consent signed. In Block Room, Time Out performed and routine monitors placed. O2 supplied using NC. IV sedation given consisting of Midazolam 1mg and fentanyl 50mcg. Right thigh positioned, prepped with choloroprep and draped in sterile fashion. Adductor Canal visualized with ultrasound technique. Skin wheal made with 25g, Lidocaine 1%. 100mm 22g sheathed needle advanced to canal. Negative aspiration and negative test dose. A total volume of 20 ml of 50:50 mixture using Ropivacaine 0.5% and Lidocaine 2% with epinephrine deposited in adductor canal using ultrasound confirmation. Patient tolerated procedure without complications and was readied for the OR.
[2019-11-22] MEDS: LACTATED RINGERS 1,000 ML 120 ML IV (10:11)
[2019-11-22] MEDS: HYDROCODONE/ACET 5/325 TABLET 1 TAB PO (11:11)
--- NOTE | 2019-11-22 11:27 | SUR.PHASEI ---
Report to Aura RN upstairs, pt ready to go up, VSS, A&O and relaxed.
[2019-11-22] MEDS: LACTATED RINGERS 1,000 ML 100 ML IV (12:30)
--- NOTE | 2019-11-22 14:18 | PT.IIE ---
Current Diagnoses Pain, unspecified (11/22/19) Surgery Performed Operation Date: 11/22/19 08:45 Actual Procedures p Total Knee Arthroplasty(Right) - Jovan Estes MD Surgical History (Last Updated 11/14/19 @ 08:59 by Arianna Sweet, RN) History of total right hip arthroplasty (Acute 07/07/18) Hx of bilateral cataract extraction (Acute) Hx of kidney transplant (Acute ~05/1994) Hx of reduction mammoplasty (Acute ~1997) Hx of tonsillectomy (Acute) S/P left unicompartmental knee replacement (Acute) Medical History (Last Updated 06/23/18 @ 09:24 by Arianna Sweet RN) Easy bruisability (Acute) Elevated WBC count (Acute) Hyperlipidemia (Acute) Hyponatremia (Acute) Osteoarthritis (Acute) SCC (squamous cell carcinoma) (Acute) Shoulder fracture, right (Acute 09/03/17) Systolic murmur (Acute) Physical Therapy Inpatient Evaluation/Re-Eval M1 PT/OT-IP Prior Functional Status Start: 11/22/19 16:03 Freq: NEEDED Status: Active Protocol: Document 11/22/19 14:18 AB (Rec: 11/22/19 16:20 AB [email or web address]) Medical Review Prior Functional Status Medical History Reviewed Yes Communication able to make needs known Mobility and Gait pt stated that she is independent with all mobilities and ambualtion without AD Social History Household Members spouse Living Arrangements House Number of Floors (Floors) One Floor Number of Stairs To Enter/Railing? 7 steps to enter with R rail ascending Home Environment Standard Height Toilet,Built- In Shower Seat Home Equipment Four Wheel Walker,Straight Cane,Raised Toilet Seat w/ Armrests,Shower Seat with Backrest,Hand Held Shower,Grab Bars In Shower Additional Social History Comment pt has a bidet as well M2 PT-IP Current Condition Start: 11/22/19 16:03 Freq: NEEDED Status: Active Protocol: Document 11/22/19 14:18 AB (Rec: 11/22/19 16:20 AB [email or web address]) Physical Therapy Current Condition Current Condition Evaluation Date 11/22/19 Treatment Diagnosis s/p R TKA; difficulty in walking Onset Date 11/22/19 Weight Bearing Status Weight Bearing Status Weight Bear as Tolerated Allowed Weight Bearing Amount (enter % WBAT RLE or #) (%) M3 PT-IP Subjective Start: 11/22/19 16:03 Freq: NEEDED Status: Active Protocol: Document 11/22/19 14:18 AB (Rec: 11/22/19 16:20 AB [email or web address]) Subjective Physical Therapy Visit Type Type Initial Evaluation Visit Start Time 14:18 Visit Stop Time 15:25 Total Visit Minutes 67 Number of MARKETING COPYWRITER Visits 0 Physical Therapy Visit Comments Patient Comments pt is agreeable to do PT Therapy Pain Assessment Pain When Pain Assessed At Rest Pain Present Pain Present Pain Reported Location Right Hip Intensity 2 Scale Used Numeric (0 - 10) Pain Management Techniques Apply Cold,Distraction,Re- positioning,Timing of Activity with Medications M4 PT-IP Mobility and Gait Start: 11/22/19 16:03 Freq: NEEDED Status: Active Protocol: Document 11/22/19 14:18 AB (Rec: 11/22/19 16:20 AB [email or web address]) PT-Bed Mobility Assessment Supine to Sit Supine to Sit Standby Assistance PT-Transfer Assessment Sit to and From Stand Sit to and from Stand Contact Guard Assistance,1 Person Assistance,Use of Upper Extremities Equipment Transfer Assistive Device Gait Belt,Front Wheeled Walker Orthotic/Prosthetic Devices or Brace: No Transfers Transfer Destination Chair,Bedside Commode Transfer Technique Stand Step Pivot Transfer Ability Level of Assist Contact Guard Assistance,1 Person Assistance,Use of Upper Extremities Comments Mobility Comments pt completed supine to sit SBA and was able to sit on EOB SBA. completed sit to stand CGA. pt still is unable to control her bladder and instructed to sit back down as pt started to urinate with standing. set up bedside commode. pt completed sit to stand again CGA and completed step transfer using FWW CGA. NAC in room to assist as well. assisted pt with dressing, hygiene care and brief provided. pt completed sit to stand from bedside commode CGA and transferred to chair using FWW CGA. pt agreed to do ambulation and stair climbing. pt does not have a FWW and has a 4WW. reviewed on how to use 4WW/ pt ambulated using 4WW CGA ~ 250 ft. completed up/down steps using R rail CGA. spouse was able to assist pt with stair climbing. educated spouse on how to assist pt and was able to put safety belt on and assist pt with stairs. pt agreed to sit up on chair. ambulated from w/c to chair using FWW SBA to CGA. positioned on chair. call light and table within reach. informed nurse that pt is asking for pain meds. Gait Assessment Gait Gait Assistance Required: Contact Guard Assist Distance (Feet) 250 Assistive Devices Assistive Device Gait Belt,4 Wheeled Walker Factors Limiting Gait Function Factors Limiting Gait Function Decreased Activity Tolerance, Decreased Sensation,Decreased Strength,Limited Range of Motion,Pain Comments Gait Comments pls refer to mobility section for details Stair Climbing Assessment Evaluation Level of Assist On Stairs Contact Guard Assistance Devices Stair Climbing Assistive Devices Right Railing Technique/Endurance Stair Climbing Direction Ascend and Descend Stair Climbing Technique Step to Step Number of Steps Climbed 3 Query Text: Stair Climbing Set # Repetitions (reps) 2 Comments Stair Climbing Comments PT demonstrated and educated pt regarding stair climbing. pt completed up/down stairs using R rail with pt holding on with B hands requiring CGA. Spouse educated on how to assist pt and was able to assist pt safely up steps. PT-Balance Assessment Sitting Balance and Reactions Static Sitting Balance Ability Normal Dynamic Sitting Balance Ability Normal Standing Balance and Reactions Static Standing Balance Ability Good Dynamic Standing Balance Ability Fair Device Used 4WW M5 PT-IP Objective Assessments Start: 11/22/19 16:03 Freq: NEEDED Status: Active Protocol: Document 11/22/19 14:18 AB (Rec: 11/22/19 16:20 [email or web address]) Orientation Orientation/Cognition Level of Alertness Alert Orientation Name,Place,Situation Language Function Ability No Deficits Noted Safety Awareness Understands Safety Issues Memory Description No Deficits Noted Gross Range of Motion Lower Extremity ROM Assessment Within Functional Limits Strength Lower Extremity Strength Assessment Right Impaired Hip 4+/5 Knee 4-/5 Coordination Assessment Gross Coordination Gross Coordination WNL Sensation Assessment Sensation Light Touch Impaired Proprioception (Position) Impaired Sensation Description Numbness Comments Sensation Comments still c/o numbness on upper thigh and buttocks Muscle Tone Muscle Tone WNL Yes M6 PT-IP Treatment Start: 11/22/19 16:03 Freq: NEEDED Status: Active Protocol: Document 11/22/19 14:18 AB (Rec: 11/22/19 16:20 AB [email or web address]) Physical Therapy Treatment Education Education Provided Precautions,Weight Bearing Status,Post-Op Packet,Safety M7 PT-IP Assessment and Plan Start: 08/19/20 16:03 Freq: NEEDED Status: Active Protocol: Document 11/22/19 14:18 AB (Rec: 11/22/19 16:20 AB [email or web address]) PT Summary Assessment and Plan Potential Rehabilitation Potential Good Status of Condition at Evaluation Stable Summary Impairments Pain,ROM,Strength,Balance, Sensation,Bed Mobility, Transfers,Gait,Activity Tolerance Assessment Summary pt requires SBA to CGA with mobility using 4WW. caregiver training conducted with stair climbing and spouse was able to assist pt safely. pt may go home when medically stable. Goals Bed Mobility Goal Independent Transfer Goal Independent,Four Wheeled Walker Gait Goal Independent,Four Wheel Walker Gait Distance 250 Other Goals up/down 7 steps R rail ascending SBA Days to Meet Goals 5 Frequency of Treatment Frequency Of Treatment Twice a Day Treatment Plan Physical Therapy Treatment Plan Bed Mobility Training,Transfer Training,Gait Training, Therapeutic Exercise,Balance Retraining,Post Op Education, Discharge Planning,Hot or Cold Pack,Neuromuscular Re-ed, Coordination Retraining,Manual Therapy Recommendations To Nursing Amount of Assist Needed 1 Person Assist Discharge Recommendations PT Discharge Recommendations Home with Assistance, Outpatient PT Transportation Needs at Discharge Private Vehicle
--- NOTE | 2019-11-22 14:40 | PC.NURSE ---
Assess- Patient to floor around 1145. Working with physical therapy now. She may discharge to home later tonight. She has a zipper closure on top of incision, with aquacel dressing and talisha wrap, patient still has some numbness in extremity but feeling to her foot. She is on LR at 100cc/hr. Given vicodin prior to getting up to floor and denies pain. CMS wnl and ppx2.
[2019-11-22] MEDS: HYDROCODONE/ACET 5/325 TABLET 2 TAB PO (15:56)
[2019-11-22] MEDS: CYCLOSPORINE 75 MG 75 EACH PO (18:10)
[2019-11-22] MEDS: ASPIRIN EC 81 MG TABLET PO (21:20)
[2019-11-22] MEDS: DOCUSATE 100 MG CAPSULE PO (21:20)
[2019-11-23] MEDS: HYDROCODONE/ACET 5/325 TABLET 2 TAB PO ×2 (00:01→13:14)
[2019-11-23] MEDS: LACTATED RINGERS 1,000 ML 100 ML IV (00:20)
[2019-11-23] MEDS: CEFAZOLIN 2 GM/100 ML FROZ.PIGGY IV (00:23)
[2019-11-23 05:00] VITALS: BP 126/65; PULSE 64; RESP 16; TEMP 36.2; O2SAT 99
[2019-11-23] MEDS: CYCLOSPORINE 75 MG 75 EACH PO (06:12)
[2019-11-23] MEDS: azaTHIOprine 50 MG TABLET 25 MG PO (06:12)
[2019-11-23 06:18] LABS: Hematocrit 31.9 % (36-46); Hemoglobin 10.8 g/dL (12.0-16.0)
[2019-11-23] MEDS: predniSONE 5 MG TABLET PO (06:18)
[2019-11-23] MEDS: CANDESARTAN 16 MG TABLET 8 MG PO (06:20)
--- NOTE | 2019-11-23 06:26 | PC.NURSE ---
Patient requested her Prednisone & Atacand now. States I take all my pills @ 0600. Requested prabhjot nancylien to take with her Prednisone. Will report to day RN.
[2019-11-23 07:00] VITALS: BP 117/59; PULSE 69; RESP 15; TEMP 36.3; O2SAT 99
--- NOTE | 2019-11-23 08:15 | PM.PNPO.1 ---
Subjective Subjective Date Patient Seen: 11/23/19 Time Patient Seen: 08:16 Interval history: The patient is progressing well. Pain is well controlled. Feels ready for discharge today. Exam Vital Signs (past 8 hours): - 11/23/19 05:00 Temperature 97.2 F L Pulse Rate 64 Respiratory Rate 16 Blood Pressure 126/65 Pulse Oximetry 99 Oxygen Delivery Method Room Air Oxygen Flow Rate 0 Narrative Exam Narrative: The dressing is intact. There is expected swelling. The leg is neurovascularly intact. Objective Labs Result Diagrams: 11/23/19 05:30 Labs: Laboratory Results - last 24 hr 11/23/19 05:30 Hgb 10.8 L Hct 31.9 L Assessment & Plan Post-op Postoperative Procedures: Procedures Operation Date: 11/22/19 08:45 Actual Procedures Side Surgeon p Total Knee Arthroplasty Right Jovan Estes MD Postoperative status narrative: The patient is progressing as expected postop day 1 total knee arthroplasty. Will discharge to home today. [facility] Protocol. Daily knee range of motion exercises at home. Will start physical therapy within the next week. May leave dressing on for 7-14 days if intact. May shower over dressing. Follow up in 2 weeks. Time Spent With Patient Time with patient: less than 15 minutes
[2019-11-23] MEDS: FERROUS SULFATE 325 MG TABLET PO (09:05)
[2019-11-23] MEDS: ASPIRIN EC 81 MG TABLET PO (09:05)
--- NOTE | 2019-11-23 10:18 | PT.IPTN ---
Current Diagnoses Pain, unspecified (11/22/19) Surgery Performed Operation Date: 11/22/19 08:45 Actual Procedures p Total Knee Arthroplasty(Right) - Jovan Estes MD Physical Therapy Treatment Note M2 PT-IP Current Condition Start: 11/22/19 16:03 Freq: NEEDED Status: Active Protocol: Document 11/22/19 14:18 AB (Rec: 11/22/19 16:20 AB [email or web address]) Physical Therapy Current Condition Current Condition Evaluation Date 11/22/19 Treatment Diagnosis s/p R TKA; difficulty in walking Onset Date 11/22/19 Weight Bearing Status Weight Bearing Status Weight Bear as Tolerated Allowed Weight Bearing Amount (enter % WBAT RLE or #) (%) M3 PT-IP Subjective Start: 11/22/19 16:03 Freq: NEEDED Status: Active Protocol: Document 11/23/19 10:05 KS (Rec: 11/23/19 11:49 KS [email or web address]) Subjective Physical Therapy Visit Type Type Treatment Note Visit Start Time 10:05 Visit Stop Time 10:18 Total Visit Minutes 13 Number of WET PRIMER POWDER BLENDER Visits 1 Physical Therapy Visit Comments Patient Comments pt is agreeable to do PT M4 PT-IP Mobility and Gait Start: 11/22/19 16:03 Freq: NEEDED Status: Active Protocol: Document 11/23/19 10:05 KS (Rec: 11/23/19 11:49 KS [email or web address]) PT-Bed Mobility Assessment Scooting Scooting to Edge of Bed Standby Assistance PT-Transfer Assessment Sit to and From Stand Sit to and from Stand Contact Guard Assistance,1 Person Assistance,Use of Upper Extremities Equipment Transfer Assistive Device Gait Belt,Front Wheeled Walker Orthotic/Prosthetic Devices or Brace: No Transfers Transfer Destination Chair Transfer Technique Pt ambulated w/ FWW Transfer Ability Level of Assist Contact Guard Assistance,1 Person Assistance,Use of Upper Extremities Comments Mobility Comments Pt in chair upon arrival from therapy and stated she does not feel necessary to review stairs or bed mobility, but agreeable to ambulation/ Pt SBA for scooting to EOC and CGA for sit<>stand w/ FWW. Pt then ambulated ~[address] w/ FWW and SBA. Pt tends to slightly circumduct RLE, but able to improve knee flexion when cued. Good use of FWW. Pt returned to room and ambulated additonal ~20 ft w/ SPC and was able to remain balanced but utilized bed frame for stability. Informed pt walker is safer for now. SBA for stand<>sit. Encouraged pt to resume outpatient rehab to improve strength and ROM. Pt left w/ all needs in reach. Gait Assessment Gait Gait Assistance Required: Standby Assistance,1 Person Assist Distance (Feet) 270 Able to Maintain Weight Bearing Status Yes During Gait Assistive Devices Assistive Device Gait Belt,Front Wheeled Walker Factors Limiting Gait Function Factors Limiting Gait Function Decreased Activity Tolerance, Decreased Sensation,Decreased Strength,Limited Range of Motion,Pain Comments Gait Comments pls refer to mobility section for details PT-Balance Assessment Sitting Balance and Reactions Static Sitting Balance Ability Normal Dynamic Sitting Balance Ability Normal Standing Balance and Reactions Static Standing Balance Ability Good Dynamic Standing Balance Ability Fair Device Used 4WW M5 PT-IP Objective Assessments Start: 11/22/19 16:03 Freq: NEEDED Status: Active Protocol: Document 11/22/19 14:18 AB (Rec: 11/22/19 16:20 AB [email or web address]) Orientation Orientation/Cognition Level of Alertness Alert Orientation Name,Place,Situation Language Function Ability No Deficits Noted Safety Awareness Understands Safety Issues Memory Description No Deficits Noted Gross Range of Motion Lower Extremity ROM Assessment Within Functional Limits Strength Lower Extremity Strength Assessment Right Impaired Hip 4+/5 Knee 4-/5 Coordination Assessment Gross Coordination Gross Coordination WNL Sensation Assessment Sensation Light Touch Impaired Proprioception (Position) Impaired Sensation Description Numbness Comments Sensation Comments still c/o numbness on upper thigh and buttocks Muscle Tone Muscle Tone WNL Yes M6 PT-IP Treatment Start: 11/22/19 16:03 Freq: NEEDED Status: Active Protocol: Document 11/23/19 10:05 KS (Rec: 11/23/19 11:49 KS [email or web address]) Physical Therapy Treatment Education Education Provided Precautions,Weight Bearing Status,Post-Op Packet,Safety M7 PT-IP Assessment and Plan Start: 11/22/19 16:03 Freq: NEEDED Status: Active Protocol: Document 11/23/19 10:05 KS (Rec: 11/23/19 11:49 KS [email or web address]) PT Summary Assessment and Plan Potential Rehabilitation Potential Good Status of Condition at Evaluation Stable Summary Impairments Pain,ROM,Strength,Balance, Sensation,Bed Mobility, Transfers,Gait,Activity Tolerance Progress Towards Goals Progressing Toward Goals Assessment Summary Pt continues to be SBA to CGA w/ mobility. Able to ambulated ~250 ft w/ FWW and ~20 ft w/ SPC. Pt agrees walker is safer to use at this point. Pt needed Min cues for knee flexion during ambulation, but demonstrated good use of FWW. Pt stated she will resume outpatient therapy soon. Goals Bed Mobility Goal Independent Transfer Goal Independent,Four Wheeled Walker Gait Goal Independent,Four Wheel Walker Gait Distance 250 Other Goals up/down 7 steps R rail ascending SBA Days to Meet Goals 5 Frequency of Treatment Frequency Of Treatment Twice a Day Treatment Plan Physical Therapy Treatment Plan Bed Mobility Training,Transfer Training,Gait Training, Therapeutic Exercise,Balance Retraining,Post Op Education, Discharge Planning,Hot or Cold Pack,Neuromuscular Re-ed, Coordination Retraining,Manual Therapy Recommendations To Nursing Amount of Assist Needed 1 Person Assist Discharge Recommendations PT Discharge Recommendations Home with Assistance, Outpatient PT Transportation Needs at Discharge Private Vehicle
--- NOTE | 2019-11-23 11:17 | CM.DANOTE ---
DCP: Case received, EMR reviewed and met with patient. Introduced self and role. Was able to obtain information from patient regarding her baseline activity level prior to surgery, and discharge planning. DCP assessment completed with information currently available. Patient is a 74 year old female who admitted yesterday morning to the care of the orthopedic team. PCP: Dr. Vasquez. Payer: confirmed: [employer]. Patient came to the hospital via private vehicle for a surgical procedure. She had a right total knee arthroplasty. Patient has history of osteoarthritis. Met with patient in her room. She is alert and oriented, pleasant. She resides in [place] with her spouse, Walker. She is independent at baseline, and is employed at [employer]. She has outpatient P.T. already set up. P: Patient is to be discharged home today, she has priority boarding to the [facility]. She will be working with P.T. again before discharge. Alexandria Stack RN/Detail Sergeant
--- NOTE | 2019-11-23 13:09 | PC.NURSE ---
Addendum entered by Buster Sterling R.N. 11/23/19 13:23: Medicated with norco as ordered prn and given ice packs for ride home on [employer]. Escorted out via wheelchair with all belongings by SCALE MANAGER to be discharged to home with her . Original Note: Discharge instructions and home care handouts reviewed with patient and her , they state understanding and have no further questions or concerns at this time. Aquacel and AICHA wrap CDI. IV removed intact. Patient tolerating meals, voiding without difficulty, and states she has follow up appointment scheduled.
== END 2019-11-23 13:27 | disposition home or self-care (01) ==
LOC: OR 11:24 → AC 11:31
PROVIDERS: PCP Family Medicine; Referring Provider Family Medicine; Visit Provider Orthopaedic Surgery
PROC: 0SRC0JZ Replacement of Right Knee Joint with Synthetic Substitute, Open Approach (ICD-10-PCS; CPT 27447; principal; 2019-11-22 08:45)
DX: M17.11 Unilateral primary osteoarthritis, right knee (principal); I10 Essential (primary) hypertension; E78.5 Hyperlipidemia, unspecified; Z94.0 Kidney transplant status
CPT/HCPCS: 27447; 36415; 73560; 85014; 85018; 97116; 97161; 97530; C1776; C9290; J0690; J1100; J2250; J2405; J2704; J3010; J7500